=== PATIENT | female | born 1990 | race Caucasian/White ===

== ENCOUNTER → 2016-07-17 | Outpatient (CLI) | payer OTHER ==
[~2016-07-17] MED LIST: DEPA1TAB3 PO; TRIL300S PO; TYLE325T5 PO
== END ==
LOC: M ONCR 12:54
PROVIDERS: ATTEND Radiology Radiation Oncology
DX: C71.9 Malignant neoplasm of brain, unspecified (principal)

== ENCOUNTER 2016-07-23 13:30 | Outpatient (RCR) | payer OTHER | END 2016-07-24 | LOC: M ONCR 13:30 | PROVIDERS: ATTEND Radiology Radiation Oncology | DX: C71.1 Malignant neoplasm of frontal lobe (principal) ==

== ENCOUNTER → 2016-07-23 | Outpatient (CLI) | payer OTHER | LOC: M RAD 08:11 | PROVIDERS: ATTEND Radiology Radiation Oncology | DX: C71.9 Malignant neoplasm of brain, unspecified (principal) ==

== ENCOUNTER 2016-07-25 11:30 | Outpatient (RCR) | payer OTHER ==
--- NOTE | 2016-08-02 08:44 | RADONC ---
RADIATION ONCOLOGY PROGRESS NOTE DATE: 07/31/2016 CHART NUMBER: [id number]. Ms. Goodman presented today for her first fraction of radiation to the brain. During treatment setup, we noticed a marked amount of oozing coming from her surgical scar, which was greenish to yellowish in color. We photographed this. The patient's family says they took a video of the wheezing which has been going on for the last couple of days. In light of this opening in her wound, which appears to be possibly infected, I have cancelled her initiation of treatment today. I contacted Dr. Honeycutt and he will be seeing the patient today in his office in order to address this issue. I light of the fact that we cannot start today, I have scheduled her to come in on Saturday for further reevaluation prior to reinitiation of therapy. She did take her Temodar pill today. I let her know that this should be of no consequence. Once again, the patient's wound has opened up today prior to initiation of treatment with a greenish to yellowish pus coming out. We have referred her back to her surgeon for treatment and wound care. Radiation will begin when she once this issue resolves.
--- NOTE | 2016-08-07 10:58 | RADONC ---
RADIATION ONCOLOGY PROGRESS NOTE DATE: 08/06/2016 Ms. Goodman has not yet started radiation for her primary brain tumor. Last Saturday, when she was scheduled to start, she came in and was oozing a yellowish green pus from the surgical scar. There was a significant amount of oozing with actual dripping and an opening in the scar. She was seen by Dr. Honeycutt and initiated antibiotics. He has her on antibiotics for the next week. The patient presented today for reevaluation. There continues to be a crusty, yellowish, pussy looking area over her scar. She reports that the oozing is continuing. She does report that she has almost another week of antibiotics to go. In light of this continued infection and unhealed area, I have scheduled her to be seen by me again on Saturday for reevaluation. By then she will have finished her antibiotic and hopefully radiation can begin. Edited: 08/08/2015 0530
--- NOTE | 2016-08-15 10:02 | RADONC ---
RADIATION ONCOLOGY PROGRESS NOTE DATE: 08/13/2016 CHART NUMBER: [id number] Ms. Goodman and her family presented today for reevaluation prior to initiating radiation. She did have an open wound with oozing and we have been following her. The patient and her family report that the wound has been closed and there has been no more oozing since before completion of her antibiotic. They are anxious to start radiation. PHYSICAL EXAMINATION: On physical exam, the surgical scar appears to be closed at this point. There is no evidence of oozing. It is still only recently closed however. I had a very lengthy discussion with this patient and her family. I have made clear that we appear to be somewhat trapped at this point. I would prefer to allow another week for further healing, just to guarantee that we do not have the wound opening up in the middle of radiation. She does however have a primary brain tumor and surgery was completed 2 months ago. After much discussion, the patient and family are aware of the risks of perhaps a wound breakdown, which may even require surgical intervention. In light of the fact that it has been quite some time since surgery, they do however agree to begin radiation today. In light of this, radiation is beginning today and indeed the patient received her first fraction of 180 cGy to her primary brain lesion. It was well tolerated without difficulty. Once again, on physical exam, the patient's scar appears to be closed. There is no more oozing. The remainder of her physical exam remains unchanged. Radiation was tolerated and will continue as scheduled.
[2016-08-20] MEDS ORDERED: DEXA2TA PO (09:34)
--- NOTE | 2016-08-20 11:37 | RADONC ---
RADIATION ONCOLOGY PROGRESS NOTE DATE: 08/20/2016 CHART NUMBER: [id number] Ms. Goodman is presently at dose of 1080 cGy to her brain and is presenting today complaining of headaches and strange feelings, including weight listlessness of her legs. REVIEW OF SYSTEMS: The patient's review of systems is positive for the above-mentioned symptoms but is otherwise noncontributory. The patient's review of systems is noncontributory. Denies nausea, vomiting, fevers, chills, night sweats, diplopia, headaches, anxiety or depression, anorexia, weight loss, visual disturbances, chest pain, urinary or bowel difficulties, bone pain, or neurological problems. PHYSICAL EXAMINATION: The patient's skin is in excellent condition with no evidence of radiation change present. Her neurological exam remains unchanged and is intact to sensory and motor. The remainder of physical exam remains unchanged as well. Ms. Goodman is tolerating her treatments at this point. I have sent in a prescription for Decadron 4 mg a day to start to see if this alleviates some of her difficulties. We will monitor her closely and radiation for now will continue as scheduled.
== END 2016-08-21 ==
LOC: M ONCR 11:30
PROVIDERS: ATTEND Radiology Radiation Oncology
DX: C71.1 Malignant neoplasm of frontal lobe (principal)

== ENCOUNTER 2016-08-22 14:29 | Outpatient (RCR) | payer OTHER ==
[~2016-08-22 14:29] MED LIST changes: +DEXA2TA PO
--- NOTE | 2016-08-28 09:27 | RADONC ---
RADIATION ONCOLOGY PROGRESS NOTE DATE: 08/27/2016 CHART NUMBER: [id number] Ms. Goodman is presently a dose of 1800 cGy to her brain and overall is tolerating treatments fairly well. She is complaining today of some increasing headaches and strange neurological feeling. Feels like her legs go numb. These symptoms improved when we started her on 4 mg of Decadron a day. She is continuing at that dose at this time. REVIEW OF SYSTEMS: The patient's review of systems again is positive for some headaches as well as strange feelings in arms and legs. It is otherwise noncontributory. She denies nausea, vomiting, fevers, chills, night sweats, diplopia, headaches, anxiety or depression, anorexia, weight loss, visual disturbances, chest pain, urinary or bowel difficulties, bone pain, or neurological problems. PHYSICAL EXAMINATION: The patient's skin is in good condition with no evidence of moist or dry desquamation. The remainder of her physical exam remains unchanged. Ms. Goodman is tolerating her treatments quite well. I have increased the patient's Decadron to 2 mg t.i.d. beginning today. We will continue to follow her closely. If her symptoms do not improve I have considered ordering a repeat MRI.
--- NOTE | 2016-09-03 12:39 | RADONC ---
RADIATION ONCOLOGY PROGRESS NOTE DATE: 09/03/2016 CHART NUMBER: [id number]. Ms. Goodman is presently a dose of 2700 cGy to her brain tumor and is tolerating treatments quite well at this point with no significant difficulties related to her radiation therapy. The patient does report a one short episode that sounds like seizure activity that occurred over the weekend. She reports that she has felt like she went blank and numb for a minute or so, but then returned to normal. She also saw some flashes of light. Other than that, she is having no neurological symptoms or no other problems. REVIEW OF SYSTEMS: The patient's review of systems is positive for that one episode of a small seizure like activity, but is otherwise noncontributory. She denies nausea, vomiting, fevers, chills, night sweats, diplopia, headaches, anxiety or depression, anorexia, weight loss, visual disturbances, chest pain, urinary or bowel difficulties, bone pain, or neurological problems. PHYSICAL EXAMINATION: The patient's skin is in good condition with no evidence of radiation change present. There is no moist or dry desquamation. The remainder of physical exam remains unchanged. Ms. Goodman is tolerating treatments quite well and radiation will continue as scheduled.
--- NOTE | 2016-09-11 08:44 | RADONC ---
RADIATION ONCOLOGY PROGRESS NOTE DATE: 09/10/2016 CHART NUMBER: [id number]. PROGRESS NOTE: Ms. Goodman is presently a dose of 3600 cGy to her brain tumor and is tolerating treatments quite well at this point with no complaints at this time related to her radiation therapy or disease. She is having no headaches or other problems. REVIEW OF SYSTEMS: The patient's review of systems is noncontributory. Denies nausea, vomiting, fevers, chills, night sweats, diplopia, headaches, anxiety or depression, anorexia, weight loss, visual disturbances, chest pain, urinary or bowel difficulties, bone pain, or neurological problems. PHYSICAL EXAMINATION: The patient's skin is in good condition with no evidence of radiation change present. There is no moist or dry desquamation. The remainder of her physical exam remains unchanged. Ms. Goodman is tolerating treatments quite well and radiation will continue as scheduled.
[2016-09-12] MEDS ORDERED: DEXA2TA PO (10:47)
--- NOTE | 2016-09-17 09:45 | RADONC ---
RADIATION ONCOLOGY PROGRESS NOTE DATE: 09/17/2016 CHART NUMBER: [id number]. Ms. Goodman is presently at a dose of 3960 cGy to her brain tumor and is tolerating treatments quite well at this point with no complaints related to her radiation therapy. She is having no headaches or other problems at the present time. REVIEW OF SYSTEMS: The patient's review of systems is noncontributory. She denies nausea, vomiting, fevers, chills, night sweats, diplopia, headaches, anxiety or depression, anorexia, weight loss, visual disturbances, chest pain, urinary or bowel difficulties, bone pain, or neurological problems. PHYSICAL EXAMINATION: The patient's skin is in good condition with no evidence of moist or dry desquamation. The remainder of her physical exam remains unchanged. Ms. Goodman is tolerating treatments quite well and radiation will continue as scheduled.
== END 2016-09-21 ==
LOC: M ONCR 14:29
PROVIDERS: ATTEND Radiology Radiation Oncology
DX: C71.1 Malignant neoplasm of frontal lobe (principal)

== ENCOUNTER 2016-09-24 08:50 | Outpatient (RCR) | payer OTHER, MEDICAID ==
--- NOTE | 2016-09-25 07:56 | RADONC ---
RADIATION ONCOLOGY PROGRESS NOTE DATE: 09/24/2016 CHART NUMBER: [id number]. PROGRESS NOTE: Ms. Goodman is thus far at a dose of 4680 cGy to her brain tumor and had been tolerating her treatments quite well with no difficulties related to her radiation therapy. She was not treated today secondary to machine breakdown and her last treatment was on 09/21/2016. The patient was seen today complaining of new knee pain and swelling since use of steroids. She had no other complaints related to her radiation therapy disease or Decadron use. REVIEW OF SYSTEMS: The patient's review of systems is positive for knee swelling but is otherwise noncontributory. Denies nausea, vomiting, fevers, chills, night sweats, diplopia, headaches, anxiety or depression, anorexia, weight loss, visual disturbances, chest pain, urinary or bowel difficulties, bone pain, or neurological problems. PHYSICAL EXAMINATION: The patient's skin is in good condition with no evidence of moist or dry desquamation. The remainder of her physical exam remains unchanged. There is some lower extremity edema. I have given the patient a Decadron taper schedule to begin today. I suspect her knee pain will resolve shortly once she is off Decadron. In the meantime, radiation is scheduled to resume tomorrow and she will complete therapy this week.
--- NOTE | 2016-09-29 07:21 | RADONC ---
RADIATION ONCOLOGY TREATMENT SUMMARY DATE: 09/28/2016 CHART NUMBER: [id number]. DIAGNOSIS: Oligodendroglioma. STAGE: Grade II. ECOG PERFORMANCE STATUS: 0. TREATMENT SUMMARY: Ms. 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 We treated the patient to her primary site for a total dose of 5400 cGy delivered in 30 fractions of 180 cGy each over 44 elapsed days from 08/13/2016 through 09/28/2016. The patient's brain primary was treated on the linear accelerator utilizing a six MV photon beam via IMRT/IGRT. Ms. Goodman tolerated her treatments quite well with no significant difficulties related to her radiation therapy. The patient complete therapy as prescribed without interruption. I have scheduled the patient to see me again in 1 month for further followup. She will also continue to be followed by her other physicians as well. Thank you for allowing us participate in the care of this very pleasant woman. If I can be of any further assistance or prepare you with any information, please free to contact me anytime. As always, warm regards. cc: MD Moises Bellamy MD *ARNOLD Ross
== END 2016-10-21 ==
LOC: M ONCR 08:50
PROVIDERS: ATTEND Radiology Radiation Oncology
DX: C71.1 Malignant neoplasm of frontal lobe (principal)

== ENCOUNTER → 2016-10-10 | Outpatient (REF) | payer OTHER ==
[2016-10-10 16:44] LABS: MEAN CORPUSCULAR HEMOGLOBIN 31.4 pg (27.0-33.0); MEAN CORPUSCULAR HGB CONC 34.9 g/dl (32.0-36.5); MEAN CORPUSCULAR VOLUME 89.8 fl (80.0-96.0); RED CELL DISTRIBUTION WIDTH 14.9 % (11.5-14.5); WHITE BLOOD COUNT 3.5 K/mm3 (4.0-10.0)
[2016-10-10 17:07] LABS: ALBUMIN 3.3 GM/DL (3.2-5.2); ALBUMIN/GLOBULIN RATIO 0.89 (1.00-1.93); ALKALINE PHOSPHATASE 91 U/L (45-117); ALT/SGPT 23 U/L (12-78); ANION GAP 8 MEQ/L (8-16); AST/SGOT 10 U/L (15-37); BILIRUBIN,TOTAL 0.5 MG/DL (0.2-1.0); BLOOD UREA NITROGEN 10 MG/DL (7-18); CALCIUM LEVEL 8.8 MG/DL (8.5-10.1); CARBON DIOXIDE LEVEL 29 MEQ/L (21-32); CHLORIDE LEVEL 107 MEQ/L (98-107); CREATININE FOR GFR 0.96 MG/DL (0.55-1.02); GLOMERULAR FILTRATION RATE > 60.0 (>60); GLUCOSE, FASTING 76 MG/DL (70-105); POTASSIUM SERUM 4.3 MEQ/L (3.5-5.1); SODIUM LEVEL 144 MEQ/L (136-145)
[2016-10-10 18:58] LABS: BANDS 1 % (< 11); EOSINOPHILS 7 % (0-5)
[2016-10-10 18:59] LABS: POIKILOCYTOSIS 1+
[2016-10-10 19:00] LABS: GIANT PLATELETS 1+; POLYCHROMASIA 1+; TEAR DROP CELLS 1+
== END ==
LOC: M SFHCLERA 14:12
PROVIDERS: ATTEND Family Medicine
DX: C71.9 Malignant neoplasm of brain, unspecified (principal); F31.31 Bipolar disorder, current episode depressed, mild

== ENCOUNTER → 2016-12-27 | Outpatient (CLI) | payer OTHER, MEDICAID ==
--- NOTE | 2016-12-27 11:49 | REP ---
MR BRAIN WITHOUT AND WITH CONTRAST: HISTORY: Malignant neoplasm. Contrast: ProHance 19 mL. COMPARISON: 04/22/2016 and 06/06/2016. The patient is status post left frontal craniotomy. An area of increased signal intensity on T2-weighted images is present in the posteromedial left frontal and anteromedial left parietal lobes. This contains a small focus of chronic hemorrhage. This also contains a ring -enhancing component. The ring-enhancing component measures 1.6 cm in transverse x 1.3 cm in AP x 2.1 cm in cephalocaudal dimensions. There is slight mass effect with partial effacement of the overlying cortical sulci. There is no midline shift. A second small focus of increased signal intensity on T2-weighted images is present in the cortex and subcortical white matter of the posterior right parietal lobe. This appears unchanged compared to the previous study. There is no acute intraparenchymal hemorrhage or acute infarct . The ventricular system is normal in appearance. There is no extracerebral collection. IMPRESSION: 1. The patient is status post biopsy of a left frontoparietal lobe mass. The mass contains a ring -enhancing component as described above. This may represent granulation tissue or enhancing tumor. A repeat examination in 3 months is recommended for further evaluation. 2. There is a small focus of increased signal intensity in the cortex and subcortical white matter of the posterior right parietal lobe, unchanged compared to the previous study. 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 Signed by Josh Velarde MD 12/27/2016 11:53 A
== END ==
LOC: M RAD 10:22
PROVIDERS: ATTEND Neurological Surgery
DX: C71.9 Malignant neoplasm of brain, unspecified (principal)

== ENCOUNTER → 2017-01-27 | Outpatient (CLI) | payer OTHER, MEDICAID ==
--- NOTE | 2017-01-28 06:43 | REP ---
RIGHT HAND COMPLETE: 01/27/2017. Clinical history: Trauma to the right hand at work. Findings: Four views are provided. Distal radius and ulna show no fracture or focal lesion. The carpal bones and joint spaces are preserved. There is no metacarpal or phalangeal fracture. The MCP and IP joints as well as CMC joints are all intact. Impression: 1. No visible fracture, avulsion, erosion, subluxation or foreign body. Negative right hand series for any acute bony finding. Signed by Jose Miguel Manjarrez MD 01/28/2017 08:01 A
== END ==
LOC: M WUC 14:03
PROVIDERS: ATTEND Physician Assistant
DX: M79.641 Pain in right hand (principal)

== ENCOUNTER → 2017-03-24 | Outpatient (REF) | payer MEDICAID, OTHER, SELFPAY | LOC: M SFHCLERA 15:01 | PROVIDERS: ATTEND Physician Assistant | DX: R10.9 Unspecified abdominal pain (principal); R31.9 Hematuria, unspecified ==

== ENCOUNTER 2017-08-05 10:08 | Emergency (ER) | payer OTHER, MEDICAID ==
[2017-08-05] MEDS: NS 1,000 ML IV (12:37)
[2017-08-05 12:49] LABS: BASO % 0.2 % (0.0-1.0); EOS # 0.1 10^3/uL (0.0-0.50); EOS % 0.9 % (0.0-3.0); HEMATOCRIT 44.4 % (36.0-47.0); HEMOGLOBIN 14.8 g/dl (12.0-16.0); IMMATURE GRANULOCYTE % 0.3 % (0-3.0); LYMPH # 1.2 10^3/uL (1.5-6.5); MEAN CORPUSCULAR HEMOGLOBIN 29.2 pg (27.0-33.0); MEAN CORPUSCULAR HGB CONC 33.3 g/dl (32.0-36.5); MEAN CORPUSCULAR VOLUME 87.6 fl (80.0-96.0); MONO # 0.5 10^3/uL (0.0-0.8); MONO % 4.7 % (0.0-5.0); NEUTROPHILS # 8.2 10^3/uL (1.8-7.7); NEUTROPHILS % 81.9 % (36.0-66.0); PLATELET COUNT, AUTOMATED 291 10^3/uL (150-450); RED BLOOD COUNT 5.07 10^6/uL (4.00-5.40); RED CELL DISTRIBUTION WIDTH 12.6 % (11.5-14.5)
[2017-08-05] MEDS: GI COCKTAIL 50ML BTL(HYOSCYAMINE/MAALOX/LIDOCAINE VISCOUS)(1:3:1) PO (13:13)
[2017-08-05 13:19] LABS: ALBUMIN 4.7 GM/DL (3.2-5.2); ALBUMIN/GLOBULIN RATIO 1.42 (1.00-1.93); ALKALINE PHOSPHATASE 113 U/L (45-117); ALT/SGPT 23 U/L (12-78); AMYLASE 53 U/L (25-115); ANION GAP 8 MEQ/L (8-16); AST/SGOT 13 U/L (7-37); BILIRUBIN,DIRECT 0.1 MG/DL (0.0-0.2); BILIRUBIN,TOTAL 0.4 MG/DL (0.2-1.0); BLOOD UREA NITROGEN 12 MG/DL (7-18); CALCIUM LEVEL 9.1 MG/DL (8.5-10.1); CARBON DIOXIDE LEVEL 26 MEQ/L (21-32); CHLORIDE LEVEL 107 MEQ/L (98-107); GLOMERULAR FILTRATION RATE > 60.0 (>60); GLUCOSE, FASTING 86 MG/DL (70-100); LIPASE 213 U/L (73-393); POTASSIUM SERUM 4.1 MEQ/L (3.5-5.1); SODIUM LEVEL 141 MEQ/L (136-145)
[2017-08-05 13:30] LABS: KETONE, URINE AUTO RFX NEGATIVE (NEGATIVE); LEUKOCYTE ESTERASE UR AUTO RFX NEGATIVE (NEGATIVE); MUCUS, URINE RFX SMALL (NEGATIVE); NITRITE, URINE AUTO RFX NEGATIVE (NEGATIVE); RBC, URINE AUTO RFX 44 /HPF (0-3); SPECIFIC GRAVITY UR AUTO RFX 1.026 (1.002-1.035); SQUAM EPITHELIAL CELL UR AURFX 1 /HPF (0-6); WBC, URINE AUTO RFX 1 /HPF (0-3)
[2017-08-05 13:36] LABS: CONTROL LINE HCG INT CTR LINE PRESENT; HCG, SERUM QUALITATIVE NEGATIVE (NEGATIVE)
== END 2017-08-05 14:02 | disposition home or self-care (01) ==
LOC: M ED 10:08
DX: K80.50 Calculus of bile duct without cholangitis or cholecystitis without obstruction (principal); F41.9 Anxiety disorder, unspecified; F33.9 Major depressive disorder, recurrent, unspecified; G43.909 Migraine, unspecified, not intractable, without status migrainosus; Z79.899 Other long term (current) drug therapy; Z88.2 Allergy status to sulfonamides; F17.210 Nicotine dependence, cigarettes, uncomplicated
CPT/HCPCS: 76705

== ENCOUNTER → 2017-08-13 | Outpatient (REF) | payer OTHER | LOC: M SFHCLERA 11:36 | DX: R10.10 Upper abdominal pain, unspecified (principal) ==

== ENCOUNTER → 2017-08-15 | Outpatient (CLI) | payer OTHER | LOC: M RAD 07:02 | DX: K82.9 Disease of gallbladder, unspecified (principal) | CPT/HCPCS: J2805 ==

== ENCOUNTER 2017-09-11 07:24 | Day surgery (SDC) | payer OTHER ==
[2017-09-11] MEDS: NS 1,000 ML IV (07:30)
[2017-09-11] MEDS ORDERED: LIDOCAINE 2% INJ 100 MG/5 ML SDV (FOR ANES.) As Ordered (07:40)
[2017-09-11] MEDS ORDERED: fentaNYL 100 MCG/2 ML INJECTION (J3010) As Ordered (07:57)
[2017-09-11] MEDS ORDERED: PROPOFOL 200 MG/20 ML VIAL As Ordered (07:58)
== END 2017-09-11 09:10 | disposition home or self-care (01) ==
LOC: M OPP 07:24
DX: R12 Heartburn (principal); K80.20 Calculus of gallbladder without cholecystitis without obstruction; K29.70 Gastritis, unspecified, without bleeding; Z85.841 Personal history of malignant neoplasm of brain; Z92.21 Personal history of antineoplastic chemotherapy; Z92.3 Personal history of irradiation; K21.9 Gastro-esophageal reflux disease without esophagitis; F41.9 Anxiety disorder, unspecified; F32.9 Major depressive disorder, single episode, unspecified; M54.81 Occipital neuralgia; G43.909 Migraine, unspecified, not intractable, without status migrainosus; M47.892 Other spondylosis, cervical region; M47.896 Other spondylosis, lumbar region; Z86.69 Personal history of other diseases of the nervous system and sense organs; E66.9 Obesity, unspecified; F17.200 Nicotine dependence, unspecified, uncomplicated; Z91.041 Radiographic dye allergy status; Z88.2 Allergy status to sulfonamides; Z79.899 Other long term (current) drug therapy
CPT/HCPCS: 43239

== ENCOUNTER → 2019-02-25 | Outpatient (REF) | payer OTHER, SELFPAY ==
[~2019-02-25] MED LIST changes: +CARA1TAB6 PO; +NAPR1TAB41 PO; +OMEP20CA4 PO; +SUCR1TA PO; +ZOLO50TA PO
== END ==
LOC: M SFHCLERA 10:19
PROVIDERS: ATTEND Nurse Practitioner Family
DX: B00.1 Herpesviral vesicular dermatitis (principal)

== ENCOUNTER → 2019-04-08 | Outpatient (REF) | payer OTHER | LOC: M SFHCLERA 10:47 | PROVIDERS: ATTEND Physician Assistant | DX: R53.81 Other malaise (principal) ==

== ENCOUNTER 2019-05-16 18:26 | Emergency (ER) | payer OTHER ==
[~2019-05-16] VITALS: Ht 160 cm; Wt 81.8 kg
[2019-05-16] MEDS ORDERED: DIVA500T9 (18:39)
--- NOTE | 2019-05-16 19:06 | ECGEPIP ---
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
[2019-05-16] MEDS ORDERED: PANTOPRAZOLE 40MG TAB (PROTONIX) PO ONE (19:15)
[2019-05-16] MEDS ORDERED: GI COCKTAIL 50ML BTL(HYOSCYAMINE/MAALOX/LIDOCAINE VISCOUS)(1:3:1) PO ONE (19:15)
[2019-05-16 19:49] LABS: BASO % 0.4 % (0.0-1.0); EOS # 0.3 10^3/uL (0.0-0.5); EOS % 3.9 % (0.0-3.0); HEMOGLOBIN 13.2 g/dl (12.0-15.5); LYMPH # 1.9 10^3/uL (1.5-5.0); LYMPH % 26.8 % (24.0-44.0); MEAN CORPUSCULAR HEMOGLOBIN 28.9 pg (27.0-33.0); MEAN CORPUSCULAR HGB CONC 32.2 g/dl (32.0-36.5); MEAN CORPUSCULAR VOLUME 89.7 fl (80.0-96.0); MONO # 0.7 10^3/uL (0.0-0.8); MONO % 9.6 % (0.0-5.0); NEUTROPHILS # 4.2 10^3/uL (1.5-8.5); PLATELET COUNT, AUTOMATED 263 10^3/uL (150-450); RED BLOOD COUNT 4.57 10^6/uL (4.00-5.40); WHITE BLOOD COUNT 7.1 10^3/uL (4.0-10.0)
[2019-05-16 20:11] LABS: ALBUMIN 3.6 GM/DL (3.2-5.2); ALT/SGPT 21 U/L (12-78); BILIRUBIN,DIRECT < 0.1 MG/DL (0.0-0.2); BILIRUBIN,TOTAL 0.2 MG/DL (0.2-1.0); BLOOD UREA NITROGEN 8 MG/DL (7-18); CALCIUM LEVEL 9.1 MG/DL (8.5-10.1); CARBON DIOXIDE LEVEL 28 MEQ/L (21-32); CHLORIDE LEVEL 108 MEQ/L (98-107); CREATININE FOR GFR 0.72 MG/DL (0.55-1.30); GLOMERULAR FILTRATION RATE > 60.0 (>60); GLUCOSE, FASTING 81 MG/DL (70-100); LIPASE 111 U/L (73-393); POTASSIUM SERUM 4.8 MEQ/L (3.5-5.1); SODIUM LEVEL 142 MEQ/L (136-145); TOTAL PROTEIN 7.5 GM/DL (6.4-8.2)
[2019-05-16 20:29] VITALS: BP 114/66
== END 2019-05-16 20:49 | disposition home or self-care (01) ==
LOC: EDBD 18:26 → EDUNIT# 18:26 → M ED 18:26
DX: K29.70 Gastritis, unspecified, without bleeding (principal); Z79.899 Other long term (current) drug therapy; Z91.041 Radiographic dye allergy status; Z88.2 Allergy status to sulfonamides

== ENCOUNTER → 2019-06-30 | Outpatient (CLI) | payer OTHER ==
[~2019-06-30] MED LIST changes: +DIVA500T9; +OMEP-172 PO; -OMEP20CA4 PO
--- NOTE | 2019-06-30 20:11 | REP ---
Clinical: cough . Comparison: None . Technique: PA and lateral. Findings: The mediastinum and cardiac silhouette are normal. The lung crowley are clear and without acute consolidation, effusion, or pneumothorax. The skeletal structures are intact and normal. Impression: 1. No acute cardiopulmonary process. Electronically Signed by Kei Smith MD 06/30/2019 08:03 P
== END ==
LOC: M LRY 16:35
PROVIDERS: ATTEND Nurse Practitioner Family
DX: R05 Cough (principal); R06.09 Other forms of dyspnea

== ENCOUNTER → 2019-08-27 | Outpatient (CLI) | payer OTHER ==
[~2019-08-27] MED LIST changes: -OMEP-172 PO; +OMEP1CAP73 PO; +PROHANCE 279.3MG/ML 15ML VIAL (A9576) As Ordered ONE
--- NOTE | 2019-08-27 18:51 | REPVR ---
PROCEDURE INFORMATION: Exam: MR Head Without and With Contrast Exam date and time: 08/27/2019 1:53 PM Age: 28 years old Clinical indication: Other: Neoplasm; Additional info: Neoplasm of unspecified behavior of brain TECHNIQUE: Imaging protocol: MR of the head without and with intravenous contrast. Contrast material: PROHANCE; Contrast volume: 13 ml; Contrast route: 22G; COMPARISON: MRI-Brain W/O FOLL BY WITH 12/27/2016 10:30 AM FINDINGS: Major vascular flow voids at the skull base are preserved. No extra-axial fluid collection. No hydrocephalus. There is left frontal lobe resection cavity/encephalomalacia. Previously demonstrated ring enhancement has improved in the interval with mild residual linear enhancement. No focal nodular or masslike focus of enhancement. No midline shift or intracranial mass effect. No diffusion restriction. 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 Signal abnormality at the paramedian left frontal lobe adjacent to left frontal resection is similar from prior. [id number] paranasal sinus disease. No mastoid effusion. IMPRESSION: Interval improvement in previously visualized enhancement at the high left frontal resection with mild residual linear enhancement, likely postoperative. Electronically signed by: Alo Shannon On 08/27/2019 18:51:23 PM
== END ==
LOC: M RAD 12:24
PROVIDERS: ATTEND Neurological Surgery
DX: D49.6 Neoplasm of unspecified behavior of brain (principal)
CPT/HCPCS: 70553; A9576